=== PATIENT | female | born 1990 | race Caucasian/White ===

== ENCOUNTER 2017-03-10 23:07 | Inpatient (IN) | payer MEDICAID ==
[~2017-03-10] VITALS: Ht 165.1 cm; Wt 72.6 kg
[~2017-03-10 23:07] MED LIST: AMPI500C49 PO; DOXY1TCP PO; FERR-252 PO; FOLI1TAB19 PO; NITR100C7 PO; PREN-234 PO
[2017-03-10 23:09] VITALS: BP 130/90
--- NOTE | 2017-03-10 23:50 | NUR ---
PATIENT IS A 26 Y/O FEMALE WHO PRESENTS TO THE ED C/O ABD PAIN. PT STATES, "MY STOMACH HAS BEEN HURTING ALL DAY." PT REPORTS 10/10 ACHING ABD PAIN THAT DOES NOT RADIATE. PT DENIES CP, SOB, REPORTS VOMITING/DIARRHEA DENIES NAUSEA. PT AAOX4, RR EVEN/UNLABORED. PT REPOSITIOEND FOR COMFORT, BED IN LOWEST POSITION. ER MD DR. CHAN NOTIFIED. WILL CONTINUE TO MONITOR.
[2017-03-11] MEDS ORDERED: NACL 0.9% 1,000 ML IV ONE (00:20)
[2017-03-11] MEDS ORDERED: ONDANSETRON 4 MG/2 ML VIAL IVP ONE (00:20)
[2017-03-11] MEDS ORDERED: MORPHINE SULFATE 4 MG/ML SYR IVP ONE (00:20)
[2017-03-11 00:39] LABS: HEMATOCRIT 44.1 % (36-48); HEMOGLOBIN 14.1 g/dL (12.0-16.0); MEAN CORPUSCULAR HEMOGLOBIN 29 pg (27-31); MEAN CORPUSCULAR HGB CONC 32 g/dL (33-37); MEAN CORPUSCULAR VOLUME 90 fL (80-94); PLATELET COUNT (AUTO) 253 K/uL (140-450); RED BLOOD CELL COUNT(AUTO) 4.88 MIL/uL (4.20-5.40); RED CELL DISTRIBUTION WIDTH 12.4 % (11.6-13.7); WHITE BLOOD COUNT (AUTO) 14.5 K/uL (4.8-10.8)
[2017-03-11] MEDS ORDERED: HYDROmorphone 1 MG/ML AMP IVP ONE ×2 (00:40→01:25)
[2017-03-11] MEDS ORDERED: KETOROLAC 60 MG/2 ML VIAL IM ONE (00:40)
[2017-03-11 00:41] LABS: APPEARANCE,URINE SL CLOUDY (CLEAR); BILIRUBIN,URINE NEGATIVE (NEGATIVE); BLOOD, URINE TRACE-L (NEGATIVE); COLOR,URINE YELLOW (YELLOW); LEUKOCYTE ESTERASE ,URINE TRACE (NEGATIVE); NITRITE, URINE NEGATIVE (NEGATIVE); PH,URINE 5.5 (5.0-9.0); UGLUCOSE NEGATIVE (NEGATIVE)
[2017-03-11 00:50] LABS: CARBON DIOXIDE 24.6 mmol/L (21-32); CREATININE 0.7 mg/dL (0.6-1.3); POTASSIUM 3.6 mmol/L (3.5-5.1)
[2017-03-11] MEDS ORDERED: HYDROmorphone PFS 2 MG/ML SYR ONE ×2 (00:53→01:38)
[2017-03-11 00:55] LABS: LYMPHOCYTES % (MANUAL) 8 % (20-46); MONOCYTES % (MANUAL) 6 % (5-12)
--- NOTE | 2017-03-11 00:55 | NUR ---
PATIENT TAKEN TO CT VIA GURNEY.
[2017-03-11 00:56] LABS: ALBUMIN 4.1 g/dL (3.4-5.0); TOTAL BILIRUBIN 0.7 mg/dL (0.0-1.0)
[2017-03-11 01:00] LABS: RBC,URINE 3-10 (FEW) /HPF (0-5)
--- NOTE | 2017-03-11 01:25 | NUR ---
Pt crying in pain still. Dr Ladd aware. Order for another Dilaudid 1 mg dose received.
[2017-03-11] MEDS ORDERED: fentaNYL 0.05 MG/ML VIAL IVP ONE (01:50)
--- NOTE | 2017-03-11 01:50 | NUR ---
Still no relief of pain. Pt literally rising to kneeing position with each wave of pain. Dr Ladd aware. Order received.
[2017-03-11] MEDS ORDERED: PANTOPRAZOLE 40 MG INJ VIAL IVP ONE (02:00)
[2017-03-11] MEDS ORDERED: MORPHINE SULFATE 2 MG/ML SYR IVP PRN (02:35)
[2017-03-11] MEDS ORDERED: DOCUSATE SODIUM 100 MG GELCAP PO PRN (02:35)
[2017-03-11 02:50] VITALS: BP 126/86
--- NOTE | 2017-03-11 02:50 | NUR ---
;RECEIVED PT FROM ER VIA [facility] PT IS AAOX4 AMBULATORY SCREAMING FOR ABD PAIN DR IS HERE PT ALREADY GOT PAIN MEDIC AND MEDIC FOR ANXIETY IN ER HL ON RT HAND PT ON TELEMETRY ST PT IS ORIENTED TO THE FLOOR CALL LIGHT WITHIN REACH
--- NOTE | 2017-03-11 02:50 | NUR ---
Patient will be admitted to care of DR. DE LA O. Admited to TELE. Will go to room 11A. Belongings list completed. Report to NADIR GUTIERREZ.
[2017-03-11] MEDS ORDERED: HALOPERIDOL IM 5 MG/ML VIAL IM SCH (03:00)
[2017-03-11] MEDS ORDERED: LORazepam 2 MG/ML VIAL IM/IVP PRN (03:00)
[2017-03-11 03:31] LABS: CHOL/HDL RATIO 3.2 (1-4.5)
[2017-03-11] MEDS: NACL 0.9% 1,000 ML IV SCH ×2 (03:41→14:00)
--- NOTE | 2017-03-11 04:34 | NUR ---
AFTER HALDOL GIVEN PT SLEEP QUIET ON TELE SR PT NPO
[2017-03-11 04:35] LABS: FREE T4 (FREE THYROXINE) 1.1 ng/dL (0.76-1.46); MAGNESIUM 1.7 mg/dL (1.8-2.4); PHOSPHORUS 3.7 mg/dL (2.5-4.9); THYROID STIMULATING HORMONE 0.86 uIU/mL (0.34-3.74)
[2017-03-11] MEDS ORDERED: LEVOFLOXACIN 500 MG/D5W PREMIX 100 ML IV SCH (06:00)
--- NOTE | 2017-03-11 06:14 | NUR ---
PT REMAIN STABLE AT THIS TIME NOT PAIN ,SLEEPING WELL, IV ON RT HAND INFUSING WELL ON TELEMETRY SR
[2017-03-11] MEDS ORDERED: ONDANSETRON 4 MG/2 ML VIAL IVP PRN (06:35)
[2017-03-11] MEDS ORDERED: KETOROLAC 15 MG/ML VIAL IVP PRN (06:35)
--- NOTE | 2017-03-11 06:35 | NUR ---
LEVA[facility]IN IVPB GIVEN ORDER
[2017-03-11] MEDS ORDERED: DICYCLOMINE HCL LIQUID 10 MG/5 ML UDC PO SCH (06:40)
[2017-03-11] MEDS ORDERED: LIDOCAINE VISCOUS 2% 20 ML UDC PO SCH (06:40)
[2017-03-11] MEDS ORDERED: ALUMINUM HYD/MAG/SIMETHICONE 30 ML UDC PO SCH (06:40)
--- NOTE | 2017-03-11 07:10 | NUR ---
LEVAQUIN INFUSING AT THIS TIME
--- NOTE | 2017-03-11 07:10 | NUR ---
RECEIVED PATIENT REPORT FROM PLASTIC MANAGER NURSE. PATIENT RECEIVED IN STABLE CONDITION. PT SLEEP BUT AROUSABLE. NO SIGNS OF RESPIRATORY DISTRESS. NO VOMITING NOTED DURING THIS TIME. WILL CONTINUE TO MONITOR PATIENT
[2017-03-11 07:40] VITALS: BP 103/57
[2017-03-11 07:41] LABS: ANION GAP 11.7 (8-16); CARBON DIOXIDE 24.6 mmol/L (21-32); CREATININE 0.6 mg/dL (0.6-1.3); POTASSIUM 3.3 mmol/L (3.5-5.1)
[2017-03-11 07:46] LABS: MAGNESIUM 1.9 mg/dL (1.8-2.4); PHOSPHORUS 3.8 mg/dL (2.5-4.9)
[2017-03-11] MEDS ORDERED: POTASSIUM CHLORIDE 10 MEQ TABER PO SCH (08:35)
[2017-03-11 08:40] LABS: HEMATOCRIT 36.3 % (36-48); HEMOGLOBIN 11.9 g/dL (12.0-16.0); MEAN CORPUSCULAR HEMOGLOBIN 29 pg (27-31); MEAN CORPUSCULAR HGB CONC 33 g/dL (33-37); MEAN CORPUSCULAR VOLUME 89 fL (80-94); PLATELET COUNT (AUTO) 209 K/uL (140-450); RED BLOOD CELL COUNT(AUTO) 4.07 MIL/uL (4.20-5.40); RED CELL DISTRIBUTION WIDTH 12.3 % (11.6-13.7)
[2017-03-11] MEDS ORDERED: SIMETHICONE 80 MG TAB.CHEW PO SCH (09:00)
[2017-03-11] MEDS ORDERED: LACTOBACILLUS RHAMNOSUS GG 1 EACH CAP PO SCH (09:00)
[2017-03-11] MEDS ORDERED: SUCRALFATE 1 GM TAB PO SCH (09:00)
[2017-03-11 09:26] LABS: LYMPHOCYTES % (MANUAL) 18 % (20-46); MONOCYTES % (MANUAL) 3 % (5-12)
[2017-03-11 09:27] LABS: BASOPHILS % (MANUAL) 0 % (0-2); EOSINOPHILS % (MANUAL) 0 % (0-4)
--- NOTE | 2017-03-11 10:15 | NUR ---
PATIENT ABLE TO WALK AROUND THE UNIT. PATIENT ABLE TO TOLERATE WALKING WITHOUT ANY ABDOMINAL PAIN DURING THIS TIME. WILL CONTINUE TO MONITOR PATIENT.
[2017-03-11 12:00] VITALS: BP 92/56
--- NOTE | 2017-03-11 13:05 | NUR ---
PATIENT IS ASLEEP DURING THIS TIME. NO SIGNS OF RESPIRATORY DISTRESS OR FACIAL GRIMACING. WILL CONTINUE TO MONITOR PATIENT.
[2017-03-11 13:19] LABS: BARBITURATE, URINE NEG ng/ml (NEG <=200); BENZODIAZEPINE, URINE NEG ng/mL (NEG <=200); CANNABINOID, URINE NEG ng/mL (NEG <=50); COCAINE, URINE NEG ng/mL (NEG <=300); OPIATE, URINE NEG ng/mL (NEG <=2000); PHENCYCLIDINE SCREEN,URINE NEG ng/mL (NEG <=25)
--- NOTE | 2017-03-11 15:50 | NUR ---
PT FAMILY IS AT BEDSIDE. PT IS AWAKE, ALERT, AND ORIENTED X4. PATIENT REPORTS NO PAIN DURING THIS TIME. WILL CONTINUE TO MONITOR PATIENT.
[2017-03-11 16:00] VITALS: BP 100/69
[2017-03-11] MEDS ORDERED: SUCR1SUS7 PO (16:18)
[2017-03-11] MEDS ORDERED: LACT10CA1 PO (16:18)
[2017-03-11] MEDS ORDERED: PANT20EC PO (16:18)
[2017-03-11] MEDS ORDERED: LEVO750T2 PO (16:18)
--- NOTE | 2017-03-11 17:11 | NUR ---
PT IS IN STABLE CONDITION. PT DISCHARGED TO HOME. DISCHARGE INSTRUCTION AND PRESCRIPTIONS GIVEN. PATIENT VERBALIZED UNDERSTANDING. PATIENT SIGNED ALL DISCHARGED PATIENTS.
[2017-03-12] MEDS ORDERED: LEVOFLOXACIN 750 MG/D5W PREMIX 150 ML IV SCH (07:00)
== END 2017-03-11 17:15 | disposition home or self-care (01) | DRG 241 ==
LOC: MED 23:07 → MTU 03-11 02:20
PROVIDERS: ADMIT Family Medicine Sports Medicine; ATTEND Family Medicine Sports Medicine
DX: K29.70 Gastritis, unspecified, without bleeding (principal); N17.0 Acute kidney failure with tubular necrosis; N39.0 Urinary tract infection, site not specified; E78.5 Hyperlipidemia, unspecified; D64.9 Anemia, unspecified; F41.1 Generalized anxiety disorder; E87.8 Other disorders of electrolyte and fluid balance, not elsewhere classified; E83.42 Hypomagnesemia; E87.6 Hypokalemia; Z88.0 Allergy status to penicillin; Z88.8 Allergy status to other drugs, medicaments and biological substances; Z90.49 Acquired absence of other specified parts of digestive tract
CPT/HCPCS: 36415; 76770; 80048; 80053; 80305; 81001; 81025; 82140; 82150; 83036; 83605; 83615; 83690; 83735; 83880; 84100; 84436; 84439; 84443; 84479; 84703; 85025; 85384; 85610; 85730; 87040; 87081; 87086; 96361; 96372; 96374; 96375; 99285; C9113; J1170; J1630; J1885; J1956; J2270; J2405; J3010; J7030; Q0092

== ENCOUNTER 2017-04-22 19:42 | Emergency (ER) | payer SELFPAY ==
[~2017-04-22] VITALS: Ht 165.1 cm; Wt 76.7 kg
[~2017-04-22 19:42] MED LIST changes: -AMPI500C49 PO; -DOXY1TCP PO; +LACT10CA1 PO; +LEVO750T2 PO; -NITR100C7 PO; +PANT20EC PO; +SUCR1SUS7 PO
[2017-04-22 19:49] VITALS: BP 129/82
--- NOTE | 2017-04-22 20:48 | NUR ---
TO ER OF A
--- NOTE | 2017-04-22 20:54 | NUR ---
26 Y/O F W/C/O LOW BACK PAIN X 2 WKS AND FEVER X 3 DAYS. NO MED HX. TOOK TYLENOL 1000MG AT 1800 TODAY. PT AAOX4. BREATHING IS UNLABORED AND EVEN. PT DENIES ANY N/V/D, SOB, CP AT THE MOMENT.
[2017-04-22] MEDS ORDERED: KETOROLAC 60 MG/2 ML VIAL IM ONE (21:05)
[2017-04-22] MEDS ORDERED: traMADol 50 MG TAB PO ONE (21:55)
[2017-04-22 22:18] LABS: BILIRUBIN,URINE NEGATIVE (NEGATIVE); BLOOD, URINE NEGATIVE (NEGATIVE); COLOR,URINE GREEN (YELLOW); LEUKOCYTE ESTERASE ,URINE TRACE (NEGATIVE); NITRITE, URINE NEGATIVE (NEGATIVE); PH,URINE 5.5 (5.0-9.0); UGLUCOSE NEGATIVE (NEGATIVE)
[2017-04-22 22:20] LABS: APPEARANCE,URINE HAZY (CLEAR)
[2017-04-22 22:28] LABS: RBC,URINE NONE SEEN /HPF (0-5); WBC,URINE 20-60 /HPF (0-5)
[2017-04-22] MEDS ORDERED: MORPHINE SULFATE 2 MG/ML SYR IM ONE (23:25)
[2017-04-22] MEDS ORDERED: LEVOFLOXACIN 500 MG TAB PO ONE (23:25)
--- NOTE | 2017-04-22 23:52 | NUR ---
Patient discharged with v/s stable. Written and verbal after care instructions given and explained. Patient alert, oriented and verbalized understanding of instructions. Ambulatory with steady gait. All questions addressed prior to discharge. ID band removed. Patient advised to follow up with PMD. Rx of NORCO 5/325MG AND MACROBID 100MG given. Patient educated on indication of medication including possible reaction and side effects. Opportunity to ask questions provided and answered.
[2017-04-22 23:53] VITALS: BP 122/71
== END 2017-04-22 23:53 | disposition home or self-care (01) ==
LOC: MED 19:42
DX: N12 Tubulo-interstitial nephritis, not specified as acute or chronic (principal); R63.0 Anorexia; Z79.899 Other long term (current) drug therapy; Z88.0 Allergy status to penicillin; Z88.8 Allergy status to other drugs, medicaments and biological substances
CPT/HCPCS: 81001; 81025; 87086; 96372; 99284; J1885; J2270

== ENCOUNTER 2018-01-10 09:23 | Inpatient (IN) | payer MEDICAID ==
[~2018-01-10] VITALS: Ht 165.1 cm; Wt 79.0 kg
[2018-01-10 09:30] VITALS: BP 137/90
[2018-01-10] MEDS ORDERED: NACL 0.9% 1,000 ML IV ONE (10:00)
[2018-01-10] MEDS ORDERED: ONDANSETRON 4 MG/2 ML VIAL IVP ONE (10:00)
[2018-01-10] MEDS ORDERED: PANTOPRAZOLE 40 MG INJ VIAL IVP ONE ×2 (10:00→11:40)
[2018-01-10] MEDS ORDERED: KETOROLAC 30 MG/ML VIAL IVP ONE (10:00)
[2018-01-10 10:39] LABS: HEMATOCRIT 41.2 % (36-48); HEMOGLOBIN 13.8 g/dL (12.0-16.0); MEAN CORPUSCULAR HEMOGLOBIN 30 pg (27-31); MEAN CORPUSCULAR HGB CONC 33 g/dL (33-37); MEAN CORPUSCULAR VOLUME 88.9 fL (80-94); PLATELET COUNT (AUTO) 251 K/uL (140-450); RED BLOOD CELL COUNT(AUTO) 4.64 MIL/uL (4.20-5.40); WHITE BLOOD COUNT (AUTO) 15.8 K/uL (4.8-10.8)
[2018-01-10] MEDS ORDERED: MORPHINE SULFATE 4 MG/ML SYR IVP ONE ×2 (10:40→10:55)
[2018-01-10 10:53] LABS: APPEARANCE,URINE TURBID (CLEAR); COLOR,URINE STRAW (YELLOW)
[2018-01-10 10:54] LABS: BILIRUBIN,URINE NEGATIVE (NEGATIVE); BLOOD, URINE NEGATIVE (NEGATIVE); LEUKOCYTE ESTERASE ,URINE NEGATIVE (NEGATIVE); NITRITE, URINE NEGATIVE (NEGATIVE); RBC,URINE NONE SEEN /HPF (0-5); UGLUCOSE NEGATIVE (NEGATIVE)
[2018-01-10 10:55] LABS: URINE AMORPHOUS URATE 3+ /HPF (None Seen)
[2018-01-10 11:03] LABS: ANION GAP 16.9 (8-16); CARBON DIOXIDE 20.9 mmol/L (21-32); CREATININE 0.7 mg/dL (0.6-1.3); POTASSIUM 3.8 mmol/L (3.5-5.1)
[2018-01-10 11:08] LABS: ALBUMIN 4.1 g/dL (3.4-5.0); TOTAL BILIRUBIN 0.7 mg/dL (0.0-1.0)
[2018-01-10 11:10] LABS: LYMPHOCYTES % (MANUAL) 9 % (20-46); MONOCYTES % (MANUAL) 1 % (5-12)
[2018-01-10] MEDS ORDERED: fentaNYL 0.05 MG/ML VIAL IVP ONE (11:15)
[2018-01-10] MEDS ORDERED: LEVOFLOXACIN 500 MG/D5W PREMIX 100 ML IV ONE (11:40)
[2018-01-10] MEDS: NACL 0.9% 1,000 ML IV SCH (12:07)
[2018-01-10] MEDS ORDERED: ZOLPIDEM 5 MG TAB PO PRN (12:10)
[2018-01-10] MEDS ORDERED: DOCUSATE SODIUM 100 MG GELCAP PO PRN (12:10)
[2018-01-10] MEDS ORDERED: LORazepam 2 MG/ML VIAL IM/IVP PRN (12:10)
[2018-01-10] MEDS ORDERED: MORPHINE SULFATE 2 MG/ML SYR IVP PRN (12:10)
[2018-01-10] MEDS: BACLOFEN 10 MG TAB PO SCH ×2 (13:00→16:52)
[2018-01-10 13:33] VITALS: BP 113/61
[2018-01-10 13:40] LABS: CHOL/HDL RATIO 2.8 (1-4.5); MAGNESIUM 1.6 mg/dL (1.8-2.4); PHOSPHORUS 2.4 mg/dL (2.5-4.9); THYROID STIMULATING HORMONE 0.1 uIU/mL (0.34-3.74)
[2018-01-10] MEDS: ONDANSETRON 4 MG/2 ML VIAL IM/IVP PRN (14:32)
[2018-01-10] MEDS: KETOROLAC 30 MG/ML VIAL IVP PRN (14:33)
[2018-01-10] MEDS ORDERED: LACTOBACILLUS RHAMNOSUS GG 1 EACH CAP PO SCH (15:00)
[2018-01-10] MEDS ORDERED: metroNIDAZOLE 500 MG/NS PREMIX 100 ML IV SCH (15:00)
[2018-01-10] MEDS ORDERED: AMITRIPTYLINE 25 MG TAB PO PRN (15:40)
[2018-01-10] MEDS ORDERED: MAG SULF 2000 MG/WATER PREMIX 50 ML IV ONE (15:45)
[2018-01-10 16:00] VITALS: BP 109/63
[2018-01-10] MEDS ORDERED: DICYCLOMINE HCL LIQUID 20 MG, ALUMINUM HYD/MAG/SIMETHICONE 30 ML, LIDOCAINE VISCOUS 2% ... PO SCH ×3 (16:00)
[2018-01-10] MEDS: MAGNESIUM SULFATE 1GM in DEXTROSE 5% 100 ML PREMIX IV SCH ×2 (17:59→18:00)
[2018-01-10] MEDS: MORPHINE SULFATE 2 MG/ML SYR IVP PRN (18:28)
[2018-01-10 20:00] VITALS: BP 101/52
[2018-01-10] MEDS: PANTOPRAZOLE 40 MG TABEC PO SCH (20:05)
[2018-01-10] MEDS: metroNIDAZOLE 500 MG/NS PREMIX 100 ML IV SCH (20:07)
[2018-01-10 20:30] LABS: BARBITURATE, URINE NEG. ng/ml (NEG <=200); BENZODIAZEPINE, URINE NEG. ng/mL (NEG <=200); CANNABINOID, URINE POS. ng/mL (NEG <=50); COCAINE, URINE NEG. ng/mL (NEG <=300); OPIATE, URINE POS. ng/mL (NEG <=2000); PHENCYCLIDINE SCREEN,URINE NEG. ng/mL (NEG <=25)
[2018-01-11] VITALS: BP 102/54
[2018-01-11] MEDS: NACL 0.9% 1,000 ML IV SCH ×4 (02:07→20:21)
[2018-01-11 04:00] VITALS: BP 91/47
[2018-01-11] MEDS: metroNIDAZOLE 500 MG/NS PREMIX 100 ML IV SCH ×3 (04:44→20:29)
[2018-01-11] MEDS: KETOROLAC 30 MG/ML VIAL IVP PRN ×3 (04:51→21:39)
[2018-01-11 05:21] LABS: BASOPHILS % (AUTO) 0.5 % (0.0-2.0); EOSINOPHILS % (AUTO) 0.5 % (0.0-4.0); HEMATOCRIT 34.8 % (36-48); HEMOGLOBIN 11.6 g/dL (12.0-16.0); LYMPHOCYTES # (AUTO) 1.4 K/uL (2.5-16.5); LYMPHOCYTES % (AUTO) 22.7 % (20.5-51.1); MEAN CORPUSCULAR HEMOGLOBIN 30 pg (27-31); MEAN CORPUSCULAR HGB CONC 33 g/dL (33-37); MEAN CORPUSCULAR VOLUME 89.7 fL (80-94); MONOCYTES # (AUTO) 0.5 K/uL (0.8-1.0); MONOCYTES % (AUTO) 7.6 % (1.7-9.3); NEUTROPHILS # (AUTO) 4.4 K/uL (1.8-7.7); NEUTROPHILS % (AUTO) 68.7 % (42.2-75.2); PLATELET COUNT (AUTO) 200 K/uL (140-450); RED BLOOD CELL COUNT(AUTO) 3.88 MIL/uL (4.20-5.40); RED CELL DISTRIBUTION WIDTH 13.3 % (11.6-13.7); WHITE BLOOD COUNT (AUTO) 6.4 K/uL (4.8-10.8)
[2018-01-11 06:22] LABS: ANION GAP 10.2 (8-16); CARBON DIOXIDE 26.9 mmol/L (21-32); CREATININE 0.6 mg/dL (0.6-1.3); POTASSIUM 3.1 mmol/L (3.5-5.1)
[2018-01-11] MEDS: LACTOBACILLUS RHAMNOSUS GG 1 EACH CAP PO SCH (07:18)
[2018-01-11] MEDS: MORPHINE SULFATE 2 MG/ML SYR IVP PRN (07:57)
[2018-01-11 08:00] VITALS: BP 104/57
[2018-01-11] MEDS ORDERED: KCL 20 MEQ/WATER INJ PREMIX 200 ML IV SCH (08:00)
[2018-01-11] MEDS ORDERED: HYDROmorphone 1 MG/ML AMP IVP PRN (08:20)
[2018-01-11] MEDS ORDERED: HALOPERIDOL IM 5 MG/ML VIAL IM SCH (08:21)
[2018-01-11] MEDS ORDERED: NACL 0.9% 500 ML IV SCH (08:23)
[2018-01-11] MEDS ORDERED: DICYCLOMINE HCL LIQUID 20 MG, ALUMINUM HYD/MAG/SIMETHICONE 30 ML, LIDOCAINE VISCOUS 2% ... PO SCH ×3 (09:00)
[2018-01-11] MEDS: PANTOPRAZOLE 40 MG TABEC PO SCH ×2 (09:27→20:19)
[2018-01-11] MEDS: BACLOFEN 10 MG TAB PO SCH ×3 (09:27→17:20)
[2018-01-11] MEDS ORDERED: POTASSIUM CHLORIDE 40 MEQ, LIDOCAINE MPF 1% - 5 mL VIAL 25 MG in NACL 0.9% 250 ML IV SCH (10:00)
[2018-01-11 12:00] VITALS: BP 96/54
[2018-01-11 16:00] VITALS: BP 94/56
[2018-01-11] MEDS: ONDANSETRON 4 MG/2 ML VIAL IM/IVP PRN (18:03)
[2018-01-11 20:00] VITALS: BP 108/67
[2018-01-11] MEDS ORDERED: LOPERAMIDE 2 MG CAP PO ONE (23:10)
[2018-01-12] VITALS: BP 100/50
[2018-01-12 04:00] VITALS: BP 104/63
[2018-01-12] MEDS: LACTOBACILLUS RHAMNOSUS GG 1 EACH CAP PO SCH (05:35)
[2018-01-12] MEDS: metroNIDAZOLE 500 MG/NS PREMIX 100 ML IV SCH (05:41)
[2018-01-12 06:17] LABS: BASOPHILS % (AUTO) 0.4 % (0.0-2.0); EOSINOPHILS # (AUTO) 0.1 K/uL (0-0.4); EOSINOPHILS % (AUTO) 1.7 % (0.0-4.0); HEMATOCRIT 32.8 % (36-48); HEMOGLOBIN 10.9 g/dL (12.0-16.0); LYMPHOCYTES # (AUTO) 1.9 K/uL (2.5-16.5); LYMPHOCYTES % (AUTO) 33.3 % (20.5-51.1); MEAN CORPUSCULAR HEMOGLOBIN 30 pg (27-31); MEAN CORPUSCULAR HGB CONC 33 g/dL (33-37); MEAN CORPUSCULAR VOLUME 90.1 fL (80-94); MONOCYTES # (AUTO) 0.5 K/uL (0.8-1.0); MONOCYTES % (AUTO) 9.1 % (1.7-9.3); NEUTROPHILS # (AUTO) 3.2 K/uL (1.8-7.7); NEUTROPHILS % (AUTO) 55.5 % (42.2-75.2); PLATELET COUNT (AUTO) 177 K/uL (140-450); RED BLOOD CELL COUNT(AUTO) 3.64 MIL/uL (4.20-5.40); RED CELL DISTRIBUTION WIDTH 13.3 % (11.6-13.7); WHITE BLOOD COUNT (AUTO) 5.7 K/uL (4.8-10.8)
[2018-01-12 06:47] LABS: MAGNESIUM 2.1 mg/dL (1.8-2.4); PHOSPHORUS 2.4 mg/dL (2.5-4.9)
[2018-01-12 06:54] LABS: ANION GAP 8.3 (8-16); CARBON DIOXIDE 26.4 mmol/L (21-32); CREATININE 0.6 mg/dL (0.6-1.3); POTASSIUM 3.7 mmol/L (3.5-5.1)
[2018-01-12 07:57] VITALS: BP 95/57
[2018-01-12] MEDS ORDERED: IMO2 PO (08:03)
[2018-01-12] MEDS ORDERED: IBUP-2213 PO (08:08)
[2018-01-12] MEDS ORDERED: ONDA8ODT2 PO (08:08)
[2018-01-12] MEDS ORDERED: SODIUM PHOS / POTASSIUM PHOS 1 PKT PDR PO SCH (09:00)
[2018-01-12] MEDS: BACLOFEN 10 MG TAB PO SCH (09:23)
[2018-01-12] MEDS: PANTOPRAZOLE 40 MG TABEC PO SCH (09:24)
[2018-01-12] MEDS: NACL 0.9% 1,000 ML IV SCH (09:48)
[2018-01-12] MEDS ORDERED: LOPERAMIDE 2 MG CAP PO PRN (23:11)
== END 2018-01-12 11:50 | disposition home or self-care (01) | DRG 720 ==
LOC: MED 09:23 → MTU 12:07
PROVIDERS: ADMIT General Practice; ATTEND General Practice
DX: A41.9 Sepsis, unspecified organism (principal); E83.39 Other disorders of phosphorus metabolism; K92.9 Disease of digestive system, unspecified; E83.42 Hypomagnesemia; N12 Tubulo-interstitial nephritis, not specified as acute or chronic; E05.90 Thyrotoxicosis, unspecified without thyrotoxic crisis or storm; E87.6 Hypokalemia; E83.51 Hypocalcemia; A08.4 Viral intestinal infection, unspecified; Z88.6 Allergy status to analgesic agent; Z88.0 Allergy status to penicillin; Z88.8 Allergy status to other drugs, medicaments and biological substances; Z90.49 Acquired absence of other specified parts of digestive tract
CPT/HCPCS: 36415; 71045; 80048; 80053; 80305; 81001; 81025; 83036; 83605; 83690; 83735; 83880; 84100; 84134; 84436; 84439; 84443; 85025; 85610; 85730; 87040; 87081; 87086; 96361; 96365; 96375; 99291; C9113; J0696; J1170; J1630; J1885; J1956; J2001; J2060; J2270; J2405; J3010; J3480; J3490; J7030; J7060; Q0092; Q9967

== ENCOUNTER 2018-02-18 11:42 | Emergency (ER) | payer SELFPAY ==
[~2018-02-18] VITALS: Ht 165.1 cm; Wt 77.7 kg
[~2018-02-18 11:42] MED LIST changes: -FERR-252 PO; -FOLI1TAB19 PO; +IBUP-2213 PO; +IMO2 PO; -LACT10CA1 PO; -LEVO750T2 PO; +ONDA8ODT2 PO; -PANT20EC PO; -PREN-234 PO; -SUCR1SUS7 PO
[2018-02-18 12:22] VITALS: BP 126/81
--- NOTE | 2018-02-18 12:24 | NUR ---
AFTER PROVIDING URINE SPECIMEN, PT AMBULATES BACK TO THE LOBBY
--- NOTE | 2018-02-18 12:27 | NUR ---
PT AMBULATES TO BED 7
--- NOTE | 2018-02-18 12:35 | NUR ---
BIB FRIENDS. PATIENT PRESENTS TO ED WITH EPIGASTRIC PAIN. STATES THE PAIN IS CONSTANT BUT GETS WORSE AT TIMES AND SHE GETS DIZZY AND NAUSEOUS AT TIMES. DENIES N/V/D AT THIS TIME; SKIN IS PINK/WARM/DRY; AAOX4 WITH EVEN AND STEADY GAIT; LUNGS CLEAR BL; HR EVEN AND REGULAR; PT DENIES ANY FEVER, CP, SOB, OR COUGH AT THIS TIME; PATIENT STATES PAIN OF 5/10 AT THIS TIME; VSS; PATIENT POSITIONED FOR COMFORT; HOB ELEVATED; BEDRAILS UP X2; BED DOWN. ER MD MADE AWARE OF PT STATUS.
--- NOTE | 2018-02-18 13:45 | NUR ---
NO STATED NEEDS AT THIS TIME.
[2018-02-18] MEDS ORDERED: NACL 0.9% 500 ML IV ONE (14:19)
[2018-02-18] MEDS ORDERED: NACL 0.9% 1,000 ML IV ONE (14:20)
[2018-02-18] MEDS ORDERED: KETOROLAC 30 MG/ML VIAL IVP ONE (14:20)
[2018-02-18] MEDS ORDERED: PANTOPRAZOLE 40 MG INJ VIAL IVP ONE (14:20)
[2018-02-18] MEDS ORDERED: ONDANSETRON 4 MG/2 ML VIAL IVP ONE (14:20)
[2018-02-18 14:34] LABS: BASOPHILS # (AUTO) 0.1 K/uL (0.00-0.22); BASOPHILS % (AUTO) 0.7 % (0.0-2.0); EOSINOPHILS # (AUTO) 0.1 K/uL (0-0.4); EOSINOPHILS % (AUTO) 0.9 % (0.0-4.0); HEMATOCRIT 41.3 % (36-48); HEMOGLOBIN 13.8 g/dL (12.0-16.0); LYMPHOCYTES # (AUTO) 2.7 K/uL (2.5-16.5); MEAN CORPUSCULAR HEMOGLOBIN 30 pg (27-31); MEAN CORPUSCULAR HGB CONC 33 g/dL (33-37); MEAN CORPUSCULAR VOLUME 89.6 fL (80-94); MONOCYTES # (AUTO) 0.4 K/uL (0.8-1.0); MONOCYTES % (AUTO) 5.2 % (1.7-9.3); NEUTROPHILS % (AUTO) 56.2 % (42.2-75.2); PLATELET COUNT (AUTO) 252 K/uL (140-450); RED BLOOD CELL COUNT(AUTO) 4.61 MIL/uL (4.20-5.40); RED CELL DISTRIBUTION WIDTH 13.7 % (11.6-13.7); WHITE BLOOD COUNT (AUTO) 7.2 K/uL (4.8-10.8)
[2018-02-18 14:37] LABS: ANION GAP 14.7 (8-16); CARBON DIOXIDE 28.3 mmol/L (21-32); CREATININE 0.7 mg/dL (0.6-1.3)
[2018-02-18 14:43] LABS: TOTAL BILIRUBIN 0.2 mg/dL (0.0-1.0)
[2018-02-18 15:42] VITALS: BP 110/60
--- NOTE | 2018-02-18 15:43 | NUR ---
Patient discharged with v/s stable. Written and verbal after care instructions given and explained. Patient alert, oriented and verbalized understanding of instructions. Ambulatory with steady gait. All questions addressed prior to discharge. ID band removed. Patient advised to follow up with PMD. Rx of PROTONIX, MAALOX, ZOFRAN given. Patient educated on indication of medication including possible reaction and side effects. Opportunity to ask questions provided and answered.
== END 2018-02-18 15:43 | disposition home or self-care (01) ==
LOC: MED 11:42
DX: K29.70 Gastritis, unspecified, without bleeding (principal); R42 Dizziness and giddiness; Z90.49 Acquired absence of other specified parts of digestive tract; Z79.899 Other long term (current) drug therapy; Z88.6 Allergy status to analgesic agent; Z88.0 Allergy status to penicillin; Z88.8 Allergy status to other drugs, medicaments and biological substances
CPT/HCPCS: 36415; 80053; 81002; 81025; 83690; 85025; 96361; 96374; 96375; 99283; C9113; J1885; J2405; J7030

== ENCOUNTER 2018-09-08 02:07 | Emergency (ER) | payer SELFPAY ==
[~2018-09-08] VITALS: Ht 165.1 cm; Wt 63.5 kg
[~2018-09-08 02:07] MED LIST changes: +ONDA-25 PO; -ONDA8ODT2 PO
[2018-09-08 02:10] VITALS: BP 11/59
--- NOTE | 2018-09-08 02:15 | NUR ---
PT WENT TO BED 11 VIA WHEELCHAIR BY RN.
--- NOTE | 2018-09-08 02:18 | NUR ---
PT TO BR VIA WHEELCHAIR W/ MOTHER
--- NOTE | 2018-09-08 02:20 | NUR ---
PT BACK IN BED, SAFETY PRECAUTION INPLEMENTED. URINE PROVIDED AND IS AT BEDSIDE.
--- NOTE | 2018-09-08 02:22 | NUR ---
PT BIB MOTHER C/O EPIGASTRIC PAIN WITH N/V/D TODAY. PAIN LEVEL 10/10. BOWEL SOUNDS ACTIVE X4 QUADRATS. NO FEVER AT THIS TIME. SAFETY MEASURES IN PLACE. WAITING FOR MD TO REEVALUATE. EMD AWARE OF PT STATUS.
--- NOTE | 2018-09-08 02:46 | NUR ---
DR. TRONCOSO AT BEDSIDE.
[2018-09-08] MEDS ORDERED: MORPHINE SULFATE 4 MG/ML SYR IVP ONE (02:50)
[2018-09-08] MEDS ORDERED: FAMOTIDINE 20 MG/2 ML VIAL IVP ONE (02:50)
--- NOTE | 2018-09-08 03:06 | NUR ---
PT WAS ARGUMENTATIVE AND REFUSED TREATMENT AT THIS TIME. PT STATED "I NEED MORE TIME." ER MD MADE AWARE. WILL CONTINUE TO MONITOR.
--- NOTE | 2018-09-08 03:07 | NUR ---
LAB AT BEDSIDE
[2018-09-08 03:16] LABS: APPEARANCE,URINE HAZY (CLEAR); BILIRUBIN,URINE NEGATIVE (NEGATIVE); BLOOD, URINE NEGATIVE (NEGATIVE); COLOR,URINE YELLOW (YELLOW); LEUKOCYTE ESTERASE ,URINE 1+ (NEGATIVE); NITRITE, URINE NEGATIVE (NEGATIVE); UGLUCOSE NEGATIVE (NEGATIVE)
[2018-09-08 03:17] LABS: BASOPHILS % (AUTO) 0.3 % (0.0-2.0); EOSINOPHILS # (AUTO) 0.1 K/uL (0-0.4); EOSINOPHILS % (AUTO) 0.5 % (0.0-4.0); HEMOGLOBIN 13.8 g/dL (12.0-16.0); LYMPHOCYTES # (AUTO) 1.7 K/uL (2.5-16.5); LYMPHOCYTES % (AUTO) 9.8 % (20.5-51.1); MEAN CORPUSCULAR HEMOGLOBIN 30 pg (27-31); MEAN CORPUSCULAR HGB CONC 34 g/dL (33-37); MEAN CORPUSCULAR VOLUME 89.6 fL (80-94); MONOCYTES % (AUTO) 5.9 % (1.7-9.3); NEUTROPHILS # (AUTO) 14.9 K/uL (1.8-7.7); PLATELET COUNT (AUTO) 271 K/uL (140-450); RED BLOOD CELL COUNT(AUTO) 4.57 MIL/uL (4.20-5.40); RED CELL DISTRIBUTION WIDTH 13.7 % (11.6-13.7); WHITE BLOOD COUNT (AUTO) 17.8 K/uL (4.8-10.8)
[2018-09-08 03:27] LABS: ANION GAP 13.7 (8-16); CARBON DIOXIDE 24.1 mmol/L (21-32); CREATININE 0.7 mg/dL (0.6-1.3); POTASSIUM 3.8 mmol/L (3.5-5.1)
[2018-09-08 03:28] LABS: RBC,URINE 0-5 /HPF (0-5)
[2018-09-08] MEDS ORDERED: LORazepam 2 MG/ML VIAL IVP ONE (03:30)
[2018-09-08] MEDS ORDERED: ONDANSETRON 4 MG/2 ML VIAL IVP ONE (03:30)
--- NOTE | 2018-09-08 03:30 | NUR ---
PT WAS COOPERATIVE AND ACCEPTED TREATMENT.
[2018-09-08 03:33] LABS: ALBUMIN 4.1 g/dL (3.4-5.0); NEUTROPHILS % (AUTO) 83.5 % (42.2-75.2); TOTAL BILIRUBIN 0.6 mg/dL (0.0-1.0)
[2018-09-08] MEDS ORDERED: ONDANSETRON 4 MG/2 ML VIAL ONE (03:38)
--- NOTE | 2018-09-08 03:50 | NUR ---
PT WENT TO CT
--- NOTE | 2018-09-08 04:04 | NUR ---
PT BACK FROM CT
[2018-09-08 05:03] VITALS: BP 105/50
--- NOTE | 2018-09-08 05:03 | NUR ---
Patient discharged with v/s stable and calm. Pain decreased 0/10 and denies N/V/D. Written and verbal after care instructions given and explained. Patient alert, oriented and verbalized understanding of instructions. Ambulatory with steady gait. All questions addressed prior to discharge. ID band and IV removed. Patient advised to follow up with PMD. Rx of Pepcid given. Patient educated on indication of medication including possible reaction and side effects. Opportunity to ask questions provided and answered.
--- NOTE | 2018-09-08 05:24 | NUR ---
Note undone in EDM - 09/08/18 at 0527 by GLO Patient discharged with v/s stable and calm. Pain decreased 0/10 and denies N/V/D. Written and verbal after care instructions given and explained. Patient alert, oriented and verbalized understanding of instructions. Ambulatory with steady gait. All questions addressed prior to discharge. ID band and IV removed. Patient advised to follow up with PMD. Rx of Pepcid given. Patient educated on indication of medication including possible reaction and side effects. Opportunity to ask questions provided and answered.
== END 2018-09-08 05:03 | disposition home or self-care (01) ==
LOC: MED 02:07
DX: K29.00 Acute gastritis without bleeding (principal); Z90.49 Acquired absence of other specified parts of digestive tract; Z79.899 Other long term (current) drug therapy; Z88.0 Allergy status to penicillin; Z88.6 Allergy status to analgesic agent; Z88.8 Allergy status to other drugs, medicaments and biological substances
CPT/HCPCS: 36415; 74176; 80053; 81001; 81025; 82150; 83690; 85025; 87086; 96374; 96375; 99284; J2060; J2270; J2405; J3490

== ENCOUNTER 2018-10-17 09:29 | Emergency (ER) | payer SELFPAY ==
[~2018-10-17] VITALS: Ht 165.1 cm; Wt 63.5 kg
--- NOTE | 2018-10-17 09:33 | NUR ---
PATIENT WHEELCHAIR ASSISTED TO BED 7. Addendum: 10/17/18 at 0951 by KRISTIN PATIENT WHEELCHAIR ASSISTED TO BED 4.
[2018-10-17 09:35] VITALS: BP 138/82
--- NOTE | 2018-10-17 09:50 | NUR ---
PT C/O 10/10 UPPER MEDIAL ABDOMINAL PAIN SINCE THIS MORNING WITH NAUSEA AND VOMITING. SKIN IS PINK/WARM/DRY; AAOX4 WITH EVEN AND STEADY GAIT; LUNGS CLEAR BL; HR EVEN AND REGULAR; PT DENIES ANY FEVER, CP, SOB, OR COUGH AT THIS TIME; VSS; PATIENT POSITIONED FOR COMFORT; HOB ELEVATED; BEDRAILS UP X1; BED DOWN. ER MD MADE AWARE OF PT STATUS.
--- NOTE | 2018-10-17 10:07 | NUR ---
PT STATES HAVING TINGLINGS ON HAND BILATERAL, DR. ARTEAGA NOTIFIED.
[2018-10-17] MEDS ORDERED: fentaNYL 0.05 MG/ML VIAL IM ONE ×2 (10:30→11:05)
--- NOTE | 2018-10-17 11:20 | NUR ---
PT IS CRYING AND STATES STILL HAVING 10/[address] ARTEAGA NOTIFIED.
[2018-10-17] MEDS ORDERED: ONDANSETRON 4 MG ODT PO ONE (12:00)
--- NOTE | 2018-10-17 12:10 | NUR ---
PT IS LYING IN BED AND FEELING BETTER.
[2018-10-17 13:00] VITALS: BP 107/63
--- NOTE | 2018-10-17 13:00 | NUR ---
Patient discharged with v/s stable. Written and verbal after care instructions given and explained. Patient alert, oriented and verbalized understanding of instructions. All questions addressed prior to discharge. Patient advised to follow up with [facility]. Rx of PRILOSEC, MOTRIN, ZOFRAN, AND NORCO given. Patient educated on indication of medication including possible reaction and side effects. Opportunity to ask questions provided and answered.
--- NOTE | 2018-10-17 13:12 | NUR ---
PT LEFT WITHOUT SIGNING PAPERWORK. DISCHARGE PAPERWORK AND PRESCRIPTIONS PROVIDED AT 1300 TODAY. MESSAGE LEFT TO PT THROUGH PHONE CALL REGARDING THE CLINIC NAME AND PHONE NUMBER, WHICH PT WAS ASKING FOR.
--- NOTE | 2018-10-17 13:15 | NUR ---
Note oumar in EDM - 10/17/18 at 1322 by MED Patient discharged with v/s stable. Written and verbal after care instructions given and explained. Patient alert, oriented and verbalized understanding of instructions. All questions addressed prior to discharge. Patient advised to follow up with [facility]. Rx of PRILOSEC, MOTRIN, ZOFRAN, AND NORCO given. Patient educated on indication of medication including possible reaction and side effects. Opportunity to ask questions provided and answered.
== END 2018-10-17 13:00 | disposition home or self-care (01) ==
LOC: MED 09:29
DX: R10.13 Epigastric pain (principal); R11.2 Nausea with vomiting, unspecified; F12.10 Cannabis abuse, uncomplicated; Z88.0 Allergy status to penicillin; Z88.6 Allergy status to analgesic agent; Z88.8 Allergy status to other drugs, medicaments and biological substances; Z90.89 Acquired absence of other organs; Z90.49 Acquired absence of other specified parts of digestive tract; Z79.899 Other long term (current) drug therapy; Z79.1 Long term (current) use of non-steroidal anti-inflammatories (NSAID)
CPT/HCPCS: 81002; 81025; 96372; 99283; J3010; Q0162

== ENCOUNTER 2023-02-02 18:37 | Inpatient (IN) | payer MEDICAID ==
[~2023-02-02] VITALS: Ht 165.1 cm; Wt 77.1 kg
[~2023-02-02 18:37] MED LIST changes: +ONDA-190 PO; -ONDA-25 PO
[2023-02-02 19:06] VITALS: BP 129/113; PULSE 125; RESP 18; TEMP 99.2; O2SAT 100
[2023-02-02 20:51] LABS: HEMATOCRIT 36.6 % (36-48); HEMOGLOBIN 12.2 g/dL (12.0-16.0); MEAN CORPUSCULAR HEMOGLOBIN 30 pg (27-31); MEAN CORPUSCULAR HGB CONC 34 g/dL (33-37); MEAN CORPUSCULAR VOLUME 90.7 fL (80-94); PLATELET COUNT (AUTO) 295 K/uL (140-450); RED BLOOD CELL COUNT(AUTO) 4.03 MIL/uL (4.20-5.40); RED CELL DISTRIBUTION WIDTH 12.8 % (11.6-13.7); WHITE BLOOD COUNT (AUTO) 23.2 K/uL (4.8-10.8)
[2023-02-02 20:59] LABS: BILIRUBIN,URINE NEGATIVE (NEGATIVE); BLOOD, URINE 3+ (NEGATIVE); COLOR,URINE YELLOW (YELLOW); LEUKOCYTE ESTERASE ,URINE 1+ (NEGATIVE); NITRITE, URINE POSITIVE (NEGATIVE); PROTEIN,URINE 1+ (NEGATIVE); UGLUCOSE NEGATIVE (NEGATIVE)
[2023-02-02 21:02] LABS: APPEARANCE,URINE HAZY (CLEAR)
[2023-02-02 21:05] LABS: ANION GAP 14.5 (8-16); CALCIUM 8.4 mg/dL (8.5-10.1); CARBON DIOXIDE 27.8 mmol/L (21-32); CREATININE 0.7 mg/dL (0.6-1.3); POTASSIUM 3.3 mmol/L (3.5-5.1)
[2023-02-02 21:11] LABS: ALBUMIN 3.4 g/dL (3.4-5.0); TOTAL BILIRUBIN 0.5 mg/dL (0.0-1.0); TOTAL PROTEIN, SERUM 7.5 g/dL (6.4-8.2)
[2023-02-02 21:17] LABS: LYMPHOCYTES % (MANUAL) 4 % (20-46); METAMYELOCYTES % 1 % (0-0); MONOCYTES % (MANUAL) 5 % (5-12); PLATELET ESTIMATE ADEQUATE
[2023-02-02 21:22] LABS: BACTERIA,URINE 3+ /HPF (None Seen); RBC,URINE 11-20 (MOD) /HPF (0-5); WBC,URINE TOO MANY TO COUNT /HPF (0-5)
[2023-02-02] MEDS ORDERED: NACL 0.9% 2,000 ML IV ONE (22:15)
[2023-02-02] MEDS ORDERED: ONDANSETRON 4 MG/2 ML VIAL IVP ONE (22:45)
[2023-02-02] MEDS ORDERED: ACETAMINOPHEN EXTRA STRENGTH 500 MG TAB PO ONE (22:45)
[2023-02-02] MEDS ORDERED: KETOROLAC 30 MG/ML VIAL IVP ONE (22:45)
[2023-02-02] MEDS ORDERED: cefTRIAXone 1,000 MG VIAL ONE (22:52)
[2023-02-03] MEDS ORDERED: HYDROmorphone PFS 2 MG/ML SYR IVP ONE ×2 (00:10→04:10)
[2023-02-03] MEDS ORDERED: ONDANSETRON 4 MG/2 ML VIAL IVP ONE ×2 (03:50)
[2023-02-03] MEDS ORDERED: MORPHINE SULFATE 2 MG/ML SYR IVP PRN (06:00)
[2023-02-03] MEDS: NACL 0.9% 1,000 ML IV SCH ×2 (06:42→16:00)
[2023-02-03 07:42] LABS: BASOPHILS % (AUTO) 0.1 % (0.0-2.0); HEMATOCRIT 31.4 % (36-48); HEMOGLOBIN 10.7 g/dL (12.0-16.0); LYMPHOCYTES % (AUTO) 4.4 % (20.5-51.1); MEAN CORPUSCULAR HEMOGLOBIN 31 pg (27-31); MEAN CORPUSCULAR HGB CONC 34 g/dL (33-37); MEAN CORPUSCULAR VOLUME 90.1 fL (80-94); MONOCYTES # (AUTO) 1.4 K/uL (0.8-1.0); MONOCYTES % (AUTO) 6.4 % (1.7-9.3); NEUTROPHILS # (AUTO) 19.5 K/uL (1.8-7.7); NEUTROPHILS % (AUTO) 89.1 % (42.2-75.2); PLATELET COUNT (AUTO) 259 K/uL (140-450); RED BLOOD CELL COUNT(AUTO) 3.48 MIL/uL (4.20-5.40)
[2023-02-03 09:18] LABS: ALBUMIN 2.7 g/dL (3.4-5.0); CALCIUM 7.7 mg/dL (8.5-10.1); CARBON DIOXIDE 22.9 mmol/L (21-32); CREATININE 0.7 mg/dL (0.6-1.3); TOTAL BILIRUBIN 0.6 mg/dL (0.0-1.0); TOTAL PROTEIN, SERUM 6.5 g/dL (6.4-8.2)
[2023-02-03 09:42] LABS: POTASSIUM 2.9 mmol/L (3.5-5.1)
[2023-02-03] MEDS ORDERED: POTASSIUM CHLORIDE 10 MEQ TABER PO SCH (10:34)
[2023-02-03] MEDS ORDERED: ONDANSETRON 4 MG/2 ML VIAL ONE (10:47)
[2023-02-03] MEDS ORDERED: POTASSIUM CHLORIDE 10 MEQ TABER PO ONE (10:50)
[2023-02-03] MEDS ORDERED: IBUPROFEN 200 MG TAB PO PRN (11:20)
[2023-02-03] MEDS: ONDANSETRON 4 MG/2 ML VIAL IVP PRN (11:29)
[2023-02-03] MEDS ORDERED: KETOROLAC 30 MG/ML VIAL IVP SCH (12:54)
[2023-02-03] MEDS ORDERED: PANTOPRAZOLE 40 MG INJ VIAL IVP SCH (12:54)
[2023-02-03] MEDS: ACETAMINOPHEN EXTRA STRENGTH 500 MG TAB PO PRN ×2 (13:27→20:38)
[2023-02-03] MEDS: HYDROmorphone 1 MG/ML AMP IVP PRN ×2 (15:58→23:10)
[2023-02-03] MEDS ORDERED: cefTRIAXone 1,000 MG VIAL ONE (22:21)
[2023-02-04] MEDS: NACL 0.9% 1,000 ML IV SCH ×3 (02:28→22:00)
[2023-02-04] MEDS: ACETAMINOPHEN EXTRA STRENGTH 500 MG TAB PO PRN ×2 (04:17→12:37)
[2023-02-04] MEDS ORDERED: CLON0.1T46 TD (06:20)
[2023-02-04] MEDS ORDERED: ALBU0.0912 INH (06:20)
[2023-02-04] MEDS ORDERED: METO25TA PO (06:20)
[2023-02-04] MEDS ORDERED: ASPI-1205 PO (06:20)
[2023-02-04] MEDS ORDERED: METO25TE2 PO (06:20)
[2023-02-04] MEDS ORDERED: CARB15DR89 OP (06:20)
[2023-02-04] MEDS ORDERED: ONDA-188 PO (06:20)
[2023-02-04] MEDS ORDERED: BEN10 PO (06:20)
[2023-02-04] MEDS ORDERED: CHOL100012 GT (06:20)
[2023-02-04] MEDS ORDERED: OMEP20EC11 PO (06:20)
[2023-02-04] MEDS ORDERED: MAGN400S60 PO (06:20)
[2023-02-04] MEDS ORDERED: FERR220S PO (06:20)
[2023-02-04] MEDS ORDERED: LEVE500T18 PO (06:20)
[2023-02-04] MEDS ORDERED: BANA1POW PO (06:20)
[2023-02-04] MEDS ORDERED: [UNRECOGNIZED DRUG - CODE] TP (06:20)
[2023-02-04] MEDS ORDERED: LACT100C5 PO (06:20)
[2023-02-04] MEDS ORDERED: SELE200T15 PO (06:20)
[2023-02-04] MEDS ORDERED: DABI150C PO (06:20)
[2023-02-04 07:41] LABS: BASOPHILS # (AUTO) 0.1 K/uL (0.00-0.22); BASOPHILS % (AUTO) 0.4 % (0.0-2.0); EOSINOPHILS % (AUTO) 0.1 % (0.0-4.0); HEMATOCRIT 29.7 % (36-48); HEMOGLOBIN 10.1 g/dL (12.0-16.0); LYMPHOCYTES # (AUTO) 1.5 K/uL (2.5-16.5); LYMPHOCYTES % (AUTO) 10.7 % (20.5-51.1); MEAN CORPUSCULAR HEMOGLOBIN 31 pg (27-31); MEAN CORPUSCULAR HGB CONC 34 g/dL (33-37); MEAN CORPUSCULAR VOLUME 90.7 fL (80-94); MONOCYTES % (AUTO) 7.4 % (1.7-9.3); NEUTROPHILS # (AUTO) 11.3 K/uL (1.8-7.7); NEUTROPHILS % (AUTO) 81.4 % (42.2-75.2); PLATELET COUNT (AUTO) 223 K/uL (140-450); RED BLOOD CELL COUNT(AUTO) 3.28 MIL/uL (4.20-5.40); WHITE BLOOD COUNT (AUTO) 13.9 K/uL (4.8-10.8)
[2023-02-04 08:00] LABS: ALBUMIN 2.5 g/dL (3.4-5.0); ANION GAP 12.6 (8-16); CALCIUM 7.5 mg/dL (8.5-10.1); CARBON DIOXIDE 24.3 mmol/L (21-32); CREATININE 0.6 mg/dL (0.6-1.3); MAGNESIUM 2.1 mg/dL (1.8-2.4); PHOSPHORUS 2.1 mg/dL (2.5-4.9); TOTAL BILIRUBIN 0.6 mg/dL (0.0-1.0); TOTAL PROTEIN, SERUM 6.4 g/dL (6.4-8.2)
[2023-02-04 08:02] LABS: POTASSIUM 2.9 mmol/L (3.5-5.1)
[2023-02-04] MEDS: HYDROmorphone 1 MG/ML AMP IVP PRN ×3 (08:45→23:02)
[2023-02-04] MEDS: ONDANSETRON 4 MG/2 ML VIAL IVP PRN ×2 (08:46→23:08)
[2023-02-04 09:00] VITALS: BP 105/69; PULSE 81; RESP 17; TEMP 98.4; O2SAT 97
[2023-02-04] MEDS ORDERED: KCL 20 MEQ IN 100 mL PREMIX 100 ML IV SCH (09:00)
[2023-02-04 09:40] VITALS: O2SAT 98
[2023-02-04] MEDS ORDERED: KCL 20 MEQ IN 100 mL PREMIX 200 ML IV SCH (13:00)
[2023-02-04] MEDS: guaiFENesin DM 200/20 MG-10 ML 10 ML UDC PO PRN ×2 (13:40→22:06)
[2023-02-04 16:00] VITALS: BP 115/67; PULSE 89; RESP 19; TEMP 100.6; O2SAT 97
[2023-02-04] MEDS: KETOROLAC 30 MG/ML VIAL IVP PRN (16:19)
[2023-02-04 20:00] VITALS: BP 119/54; PULSE 108; RESP 19; TEMP 99.8; O2SAT 94
[2023-02-05 04:00] VITALS: BP 116/72; PULSE 95; RESP 19; TEMP 100.4; O2SAT 94
[2023-02-05] MEDS: HYDROmorphone 1 MG/ML AMP IVP PRN ×3 (05:38→23:31)
[2023-02-05] MEDS: ACETAMINOPHEN EXTRA STRENGTH 500 MG TAB PO PRN (05:44)
[2023-02-05 07:06] LABS: BASOPHILS % (AUTO) 0.2 % (0.0-2.0); HEMATOCRIT 30.2 % (36-48); HEMOGLOBIN 10.2 g/dL (12.0-16.0); LYMPHOCYTES # (AUTO) 1.5 K/uL (2.5-16.5); LYMPHOCYTES % (AUTO) 10.2 % (20.5-51.1); MEAN CORPUSCULAR HEMOGLOBIN 31 pg (27-31); MEAN CORPUSCULAR HGB CONC 34 g/dL (33-37); MEAN CORPUSCULAR VOLUME 90.5 fL (80-94); MONOCYTES # (AUTO) 0.9 K/uL (0.8-1.0); MONOCYTES % (AUTO) 6.5 % (1.7-9.3); NEUTROPHILS # (AUTO) 12.1 K/uL (1.8-7.7); NEUTROPHILS % (AUTO) 83.1 % (42.2-75.2); PLATELET COUNT (AUTO) 270 K/uL (140-450); RED BLOOD CELL COUNT(AUTO) 3.34 MIL/uL (4.20-5.40); WHITE BLOOD COUNT (AUTO) 14.6 K/uL (4.8-10.8)
[2023-02-05 07:31] LABS: ALBUMIN 2.4 g/dL (3.4-5.0); ANION GAP 13.4 (8-16); CALCIUM 7.9 mg/dL (8.5-10.1); CREATININE 0.6 mg/dL (0.6-1.3); MAGNESIUM 1.9 mg/dL (1.8-2.4); POTASSIUM 3.4 mmol/L (3.5-5.1); TOTAL BILIRUBIN 0.5 mg/dL (0.0-1.0); TOTAL PROTEIN, SERUM 6.5 g/dL (6.4-8.2)
[2023-02-05 08:00] VITALS: BP 104/60; PULSE 66; RESP 18; TEMP 97.6; O2SAT 94; O2SAT 96
[2023-02-05] MEDS: NACL 0.9% 1,000 ML IV SCH ×2 (08:00→11:55)
[2023-02-05] MEDS ORDERED: POTASSIUM CHLORIDE 10 MEQ TABER PO SCH (09:00)
[2023-02-05 16:00] VITALS: BP 119/75; PULSE 92; RESP 18; TEMP 99.7; O2SAT 95
[2023-02-05] MEDS: guaiFENesin DM 200/20 MG-10 ML 10 ML UDC PO PRN (17:55)
[2023-02-05] MEDS: KETOROLAC 30 MG/ML VIAL IVP PRN (17:55)
[2023-02-05 20:00] VITALS: BP 114/73; PULSE 84; RESP 18; TEMP 97.8; O2SAT 97
[2023-02-06 04:00] VITALS: BP 119/78; PULSE 70; RESP 18; TEMP 98.2; O2SAT 97
[2023-02-06] MEDS: NACL 0.9% 1,000 ML IV SCH (05:16)
[2023-02-06 07:31] LABS: BASOPHILS # (AUTO) 0.1 K/uL (0.00-0.22); BASOPHILS % (AUTO) 0.5 % (0.0-2.0); EOSINOPHILS % (AUTO) 0.4 % (0.0-4.0); HEMATOCRIT 30.2 % (36-48); HEMOGLOBIN 10.4 g/dL (12.0-16.0); LYMPHOCYTES # (AUTO) 1.7 K/uL (2.5-16.5); LYMPHOCYTES % (AUTO) 17.6 % (20.5-51.1); MEAN CORPUSCULAR HEMOGLOBIN 31 pg (27-31); MEAN CORPUSCULAR HGB CONC 35 g/dL (33-37); MONOCYTES # (AUTO) 0.7 K/uL (0.8-1.0); MONOCYTES % (AUTO) 6.8 % (1.7-9.3); NEUTROPHILS # (AUTO) 7.3 K/uL (1.8-7.7); NEUTROPHILS % (AUTO) 74.7 % (42.2-75.2); PLATELET COUNT (AUTO) 281 K/uL (140-450); RED BLOOD CELL COUNT(AUTO) 3.36 MIL/uL (4.20-5.40); RED CELL DISTRIBUTION WIDTH 12.7 % (11.6-13.7); WHITE BLOOD COUNT (AUTO) 9.8 K/uL (4.8-10.8)
[2023-02-06 07:39] LABS: ANION GAP 12.7 (8-16); CALCIUM 7.8 mg/dL (8.5-10.1); CREATININE 0.5 mg/dL (0.6-1.3); POTASSIUM 3.7 mmol/L (3.5-5.1)
[2023-02-06 08:00] VITALS: PULSE 85; RESP 15; O2SAT 96
[2023-02-06 08:41] VITALS: BP 119/79; PULSE 85; RESP 15; TEMP 98.6; O2SAT 96
[2023-02-06] MEDS ORDERED: CEPH-588 PO (09:25)
[2023-02-06] MEDS ORDERED: ACET-2619 PO (09:25)
[2023-02-06 10:49] VITALS: BP 119/79; PULSE 85; RESP 15; TEMP 98.6
== END 2023-02-06 14:05 | disposition home or self-care (01) | DRG 720 ==
LOC: MED 18:37 → MTU 02-03 06:05
PROVIDERS: ADMIT Student in an Organized Health Care Education/Training Program; ATTEND Student in an Organized Health Care Education/Training Program
DX: A41.9 Sepsis, unspecified organism (principal); E44.0 Moderate protein-calorie malnutrition; N12 Tubulo-interstitial nephritis, not specified as acute or chronic; E87.6 Hypokalemia; F19.90 Other psychoactive substance use, unspecified, uncomplicated; D64.9 Anemia, unspecified; B96.20 Unspecified Escherichia coli [E. coli] as the cause of diseases classified elsewhere; Z90.49 Acquired absence of other specified parts of digestive tract; Z88.1 Allergy status to other antibiotic agents; Z88.0 Allergy status to penicillin; Z88.8 Allergy status to other drugs, medicaments and biological substances; Z79.899 Other long term (current) drug therapy; Z68.28 Body mass index [BMI] 28.0-28.9, adult
CPT/HCPCS: 36415; 76700; 80048; 80053; 81001; 81025; 83690; 83735; 84100; 85025; 87040; 87086; 96365; 96375; 96376; 99285; C9113; J0696; J1170; J1885; J2270; J2405; J3480; J7060; Q0092